=== PATIENT | male | born 1960 | race Caucasian/White ===

== ENCOUNTER → 2017-11-19 | Outpatient (CLI) | payer OTHER | END | disposition home or self-care (01) | LOC: CFH 11:37 | PROVIDERS: ATTEND Internal Medicine | DX: Z13.220 Encounter for screening for lipoid disorders (principal); Z12.5 Encounter for screening for malignant neoplasm of prostate; Z23 Encounter for immunization; I10 Essential (primary) hypertension; M53.86 Other specified dorsopathies, lumbar region; M25.532 Pain in left wrist; R22.2 Localized swelling, mass and lump, trunk; E11.65 Type 2 diabetes mellitus with hyperglycemia; E78.1 Pure hyperglyceridemia; Z71.6 Tobacco abuse counseling; Z72.0 Tobacco use | CPT/HCPCS: 71046 ==

== ENCOUNTER 2020-05-26 12:07 | Emergency (ER) | payer OTHER ==
[~2020-05-26] VITALS: Ht 190.5 cm; Wt 120.0 kg
--- NOTE | 2020-05-26 12:43 | NUR ---
PT STTAES LT SIDED FACIAL DROOP SINCE WAKING UP THIS AM. PT WITH NO OTHER DEFICITS, PROTECTING OWN AIRWAY WELL, A&OX4. PT PLACED ON MONITORS, VSS. LAB AT BEDSIDE FOR LAB DRAW. PT AWAITING CT. CONT TO MONITOR.
[2020-05-26 12:49] LABS: BASOPHILS # (AUTO) 0.11 x10^3/uL (0-0.1); BASOPHILS % (AUTO) 1 % (0-1); EOSINOPHILS # (AUTO) 0.21 x10^3/uL (0-0.4); EOSINOPHILS % (AUTO) 2 % (1-7); LYMPHOCYTES # (AUTO) 3.36 x10^3/uL (1-3.4); LYMPHOCYTES % (AUTO) 30 % (22-44); MD NO; MEAN CORPUSCULAR HEMOGLOBIN 30.6 pg (27.5-34.5); MEAN CORPUSCULAR HGB CONC 32.9 g/dL (33.2-36.2); MEAN PLATELET VOLUME 7.1 fL (7.4-10.4); MONOCYTES # (AUTO) 0.58 x10^3/uL (0.2-0.8); MONOCYTES % (AUTO) 5 % (2-9); NEUTROPHILS # (AUTO) 6.92 x10^3/uL (1.8-6.8); NEUTROPHILS % (AUTO) 62 % (42-75); PLATELET COUNT 293 x10^3/uL (130-400); RED BLOOD COUNT 4.93 x10^6/uL (4.38-5.82); RED CELL DISTRIBUTION WIDTH 13.5 % (9.4-14.8)
--- NOTE | 2020-05-26 12:57 | NUR ---
RECEIVED REPORT FROM MICHELLE MONTANO. PT RESTING ON [facility].
[2020-05-26 13:02] LABS: ALBUMIN 3.7 g/dL (3.4-5.0); ANION GAP 6 mmol/L (5-15); CALCIUM 8.9 mg/dL (8.5-10.1); CHLORIDE 109 mmol/L (98-107); CREATININE 0.98 mg/dL (0.7-1.3)
[2020-05-26] MEDS ORDERED: DIPH,PERTUSS(ACELL),TET VAC/PF 0.5 ML IM-VACC ONE (13:29)
[2020-05-26 14:05] VITALS: BP 131/58
--- NOTE | 2020-05-26 14:05 | NUR ---
PT TO AND FROM CT IN STABLE CONDITION. PT RESTING ON GURNEY. NADN. [place].
== END 2020-05-26 14:46 | disposition home or self-care (01) ==
LOC: ED 13:52
DX: G51.0 Bell's palsy (principal); R94.31 Abnormal electrocardiogram [ECG] [EKG]; E11.9 Type 2 diabetes mellitus without complications
CPT/HCPCS: 36415; 70450; 80048; 82040; 85025; 93005; 99285; J7512